=== PATIENT | male | born 1945 | race Caucasian/White ===

== ENCOUNTER 2018-09-19 01:30 | Emergency (ER) | payer MEDICARE, BC ==
--- NOTE | 2018-09-19 01:40 | Emergency Department Record ---
History of Present Illness - General Chief complaint: Facial Swelling Stated complaint: THROAT SWELLING Time Seen by Provider: 09/19/18 01:34 Source: Patient, Family Mode of Arrival: Wheelchair Limitations: No limitations - History of Present Illness Initial Comments: 73 yo male presents to ED for evaluation of swelling to the neck and chest following a fall that occurred approximately 9 hours ago. Patient reports that his symptoms worsened this evening approximately 1 hour ago. Patient reports a history of lung cancer right lung, denies recent fevers, chills, or cough symptoms. MD Complaint: Facial swelling Onset/Timin -: Hour(s) Symptoms: Facial swelling Severity: Moderate Treatment Prior to Arrival: None Previous Allergy History: None - Related Data Home Medications Medication Instructions Recorded Confirmed Last Taken Albuterol Sulfate [Proair Hfa] 2 puff INH ASDIR PRN 09/19/18 09/19/18 09/18/18 Duloxetine HCl [Cymbalta] 30 mg PO DAILY 09/19/18 09/19/18 09/18/18 Mesalamine 1.2 gm PO DAILY 09/19/18 09/19/18 09/18/18 Oxycodone HCl/Acetaminophen 1 tab PO ASDIR PRN 09/19/18 09/19/18 09/18/18 [Percocet 10mg/325mg] Allergies Allergy/AdvReac Type Severity Reaction Status Date / Time azathioprine [From Imuran] Allergy HIVES Verified 10/30/14 06:02 azathioprine sodium Allergy HIVES Verified 10/30/14 06:02 [From Imuran] gabapentin AdvReac CHEST PAIN Verified 09/19/18 01:41 Review of Systems Constitutional: Denies: Chills, Fever, Malaise, Night sweats Eyes: Denies: Eye discharge, Eye pain ENT: Denies: Congestion, Ear pain, Epistaxis Respiratory: Reports: Dyspnea. Denies: Cough Cardiovascular: Denies: Chest pain Endocrine: Denies: Fatigue, Heat or cold intolerance Gastrointestinal: Denies: Abdominal pain, Nausea, Vomiting Genitourinary: Denies: Incontinence, Retention Musculoskeletal: Denies: Arthralgia, Back pain, Gout, Joint swelling Skin: Denies: Bruising, Change in color Neurological: Denies: Abnormal gait, Confusion, Headache, Seizure Psychiatric: Denies: Anxiety Hematological/Lymphatic: Denies: Anemia, Blood Clots Past Medical History - SOCIAL HISTORY Smoking Status: Former smoker - RESPIRATORY Hx Respiratory Disorders: No - CARDIOVASCULAR Hx Cardio Disorders: Yes Hx Edema: Yes Hx Hypertension: Yes - NEURO Hx Neuro Disorders: No - GI Hx GI Disorders: Yes Hx Abdominal Pain: Yes Hx Rectal Bleeding: Yes (with mucous) Hx of Polyps: Yes Comment:: history of ulcerative colitis - Hx Genitourinary Disorders: No - ENDOCRINE Hx Endocrine Disorders: No - MUSCULOSKELETAL Hx Musculoskeletal Disorders: Yes Hx Arthritis: Yes Hx Osteoporosis: Yes - PSYCH Hx Psych Problems: Yes Hx Anxiety: Yes Hx Depression: Yes - HEMATOLOGY/ONCOLOGY Hx Hematology/Oncology Disorders: Yes Hx Anemia: Yes Hx Cancer: Yes (lung, slight skin cancer-back) Hx Chemotherapy: Yes Hx Radiation Therapy: Yes Hx Blood Transfusions: Yes Family Medical History Hx Diabetes: Mother Hx HTN: Mother Hx Stroke: Mother Physical Exam - General General Appearance: Alert, Oriented x3, Cooperative, Moderate distress Limitations: No limitations - Head Head exam: Atraumatic, Normocephalic, Normal inspection Head exam detail: negative: Abrasion, Contusion, Bunn's sign, General tenderness, Hematoma, Laceration - Eye Eye exam: Normal appearance, Periorbital swelling. negative: Conjunctival injection, Periorbital tenderness, Scleral icterus - ENT Ear exam: negative: Auricular hematoma, Auricular trauma Nasal Exam: negative: Active bleeding, Discharge, Dried blood, Foreign body Mouth exam: negative: Drooling, Laceration, Muffled voice, Tongue elevation - Neck Neck exam: Normal inspection. negative: Meningismus - Respiratory Respiratory exam: Respiratory distress, Rhonchi (Coarse BS bilaterally), Other (Subcutaneous air to the right chest and neck bilaterally). negative: Rales - Cardiovascular Cardiovascular Exam: Regular rate, Normal rhythm, Normal heart sounds - GI/Abdominal GI/Abdominal exam: Soft. negative: Rebound, Rigid, Tenderness - Rectal Rectal exam: Deferred - exam: Deferred - Extremities Extremities exam: Normal inspection. negative: Pedal edema, Tenderness - Back Back exam: Denies: CVA tenderness (R), CVA tenderness (L) - Neurological Neurological exam: Alert, Normal gait, Oriented X3 - Psychiatric Psychiatric exam: Normal affect, Normal mood - Skin Skin exam: Normal color. negative: Abrasion Type of lesion: negative: abrasion Course - Reevaluation(s) Reevaluation #1: 09/19/18 01:57 Portable CXR reviewed: Findings appear c/w right rib fractures, approximately 20% pneumothorax with subcutaneous air present Likely chronic compression left lung due to lung cancer Call placed to [facility] Trauma services re: chest tube placement before or after transfer. Reevaluation #2: 09/19/18 02:46 Chest Tube Placement Procedure completed. Procedure Note: Right mid-axillary line was prepped in sterile fashion, skin was anesthetized with 10 mL of 1% Lidocaine with epinephrine with good anesthesia. Needle insertion into the lung was performed using 16 guage needle with retraction of air, guide wire was placed via the seldinger technigue and the needle was removed. Pool was made into the skin using #11 blade, dilator was placed over the guide wire and removed, and 14 F chest tube catheter was placed over the guide wire. Catheter was hooked up to pleurovac with suction. Catheter was sutured into place, and secured to the chest wall with sponge tape. Repeat CXR was reviewed with subsequent resolution of the patient's pneumothorax. Repeat CXR was reviewed: Satisfactory re-inflation of the right lung Patient appears stable for transfer to [facility] for Surgical evaluation and admission. Procedures - Procedural Sedation Indications: other ASA Class: III Mallampati Airway Score: 3 Preparation: cardiac rehab nurse applied, pulse oximeter, supplemental O2 applied, suction/airway equipment at bedside, IV secured Fentanyl: IV Ketamine: IV Ketamine Dose: 50 Complications: none Patient Tolerated Procedure: Good Sedation Start Date: 09/19/18 Sedation Start Time: 02:25 Sedation End Date: 09/19/18 Sedation End Time: 02:30 Disposition Disposition: Transfer Clinical Impression: Pneumothorax, right Ribs, multiple fractures Qualifiers: Encounter type: initial encounter Fracture type: closed Laterality: right Qualified Code(s): S22.41XA - Multiple fractures of ribs, right side, initial encounter for closed fracture Disposition: Acute Care Hospital Transfer Transfer To: [facility] Reason For Transfer: Pneumothorax Accepting Physician: [facility] Time Discussed w/Accepting Physician: 59 Condition: (2) Stable Forms: Patient Portal Access Time of Disposition: Quality - Quality Measures Quality Measures: N/A - Blood Pressure Screening Does Patient Have Any of the Following: No Blood Pressure Classification: Pre-Hypertensive BP Reading Systolic Measurement: 187 Diastolic Measurement: 87 Screening for High Blood Pressure: < Pre-Hypertensive BP, F/U Documented > [[id number]] Pre-Hypertensive Follow-up Interventions: Referral to alternative/primary care provider.
[2018-09-19] MEDS ORDERED: HYDROMORPHONE HCL 2 MG/ML VIAL IVP ONE ×2 (02:45→02:53)
[2018-09-19] MEDS ORDERED: FENTANYL PF 100MCG/2ML VIAL IVP ONE ×2 (02:53→03:21)
[2018-09-19] MEDS ORDERED: **ER** KETAMINE HCL 500MG/10ML VIAL IV ONE (02:53)
[2018-09-19] MEDS ORDERED: ONDANSETRON 4 MG ODT TABLET SL ONE (02:53)
[2018-09-19] MEDS ORDERED: 0.9 % SODIUM CHLORIDE 1000ML 1,000 ML IV SCH (03:15)
[2018-09-19] MEDS ORDERED: ONDANSETRON HCL IV 4 MG/2 ML VIAL IVP ONE (03:21)
--- NOTE | 2018-09-20 09:57 | RADIOLOGY REPORT ---
EXAM: PORTABLE CHEST HISTORY: SHORTNESS OF BREATH. SWELLING IN NECK AND UPPER CHEST. FALL. TECHNIQUE: A single mobile semi-erect view of the chest was obtained. Comparison: CT of the chest with contrast dated 09/12/18. FINDINGS: There is again noted chronic inhalation of the left hemidiaphragm with left hemithorax volume loss and leftward shift to the mediastinum. New since the prior examination is a moderate sized right pneumothorax with the air filled pleural space laterally at the upper hemithorax level measuring 2.5 cm in thickness. There is associated atelectasis of the right lung base. Severe diffuse subcutaneous emphysema is noted throughout the chest and neck. Pneumomediastinum is also suspected. A displaced fracture of the posterolateral right ninth rib is identified with approximately 7 mm of inferior displacement of the distal fracture fragment. A displaced fracture of the posterolateral right tenth rib is also identified with approximately 6 mm of inferior displacement of the distal fracture fragment. No other displaced osseous fracture is seen. IMPRESSION: 1. ACUTE DISPLACED RIGHT NINTH AND TENTH RIB FRACTURES ASSOCIATED WITH MODERATE SIZED RIGHT PNEUMOTHORAX, SEVERE SUBCUTANEOUS EMPHYSEMA AND PROBABLE PNEUMOMEDIASTINUM. 2. CHRONIC ELEVATION OF THE LEFT HEMIDIAPHRAGM WITH LEFT HEMITHORAX VOLUME LOSS AND LEFTWARD MEDIASTINAL SHIFT NOT GROSSLY CHANGED IN THE INTERVAL. JOB NUMBER: [id number] [facility]
--- NOTE | 2018-09-20 10:20 | RADIOLOGY REPORT ---
EXAM: PORTABLE CHEST HISTORY: PNEUMOTHORAX. RECENT CHEST TUBE PLACEMENT. TECHNIQUE: A single mobile radiographic view of the chest was obtained with the patient in a right anterior oblique position. Comparison: Jewel-erect portable chest dated 09/19/18 at 01:41. FINDINGS: There has been interval placement of a small caliber right pleural drain located superiorly. There has been apparent evacuation of the previously demonstrated moderate sized right pneumothorax. Evaluation of lung parenchyma on the right is limited by severe superimposed subcutaneous emphysema. No new right lung consolidation. Persistent left hemithorax volume loss with elevation of the left hemidiaphragm and left rib midline shift, not significantly changed. Displaced acute fractures of the posterolateral right ninth and tenth ribs redemonstrated. Pneumomediastinum is again suspected along with the diffuse chest wall emphysema extending into the neck. Evaluation of heart size is limited as is evaluation of pulmonary vasculature. The external portion of the pleural drain does appear kinked. IMPRESSION: 1. INTERVAL PLACEMENT OF A SMALL CALIBER RIGHT PLEURAL DRAIN WITH ASSOCIATED EVACUATION OF THE PREVIOUSLY DEMONSTRATED MODERATE SIZE RIGHT PNEUMOTHORAX. THE EXTERNAL PORTION OF THE TUBE DOES APPEAR KINKED. 2. DIFFUSE SEVERE SUBCUTANEOUS EMPHYSEMA THROUGHOUT THE CHEST EXTENDING INTO THE NECK AND PROBABLE PNEUMOMEDIASTINUM PERSISTS. 3. DISPLACED ACUTE FRACTURES OF THE POSTEROLATERAL RIGHT NINTH AND TENTH RIBS REDEMONSTRATED. 4. STABLE LEFT HEMITHORAX VOLUME LOSS WITH INCREASED OPACITY REDEMONSTRATED AT THE LEVEL OF THE MID TO LOWER LEFT LUNG. JOB NUMBER: [id number] [facility]
== END 2018-09-19 03:00 | disposition short-term general hospital (02) ==
LOC: ER 01:30
DX: S27.0XXA Traumatic pneumothorax, initial encounter (principal); S22.41XA Multiple fractures of ribs, right side, initial encounter for closed fracture; R06.02 Shortness of breath; I10 Essential (primary) hypertension; W19.XXXA Unspecified fall, initial encounter; Y92.008 Other place in unspecified non-institutional (private) residence as the place of occurrence of the external cause; F17.210 Nicotine dependence, cigarettes, uncomplicated; Z85.118 Personal history of other malignant neoplasm of bronchus and lung
CPT/HCPCS: 32551; 71045; 96374; 96375; 99285; J2405; J7030